=== PATIENT | female | born 2005 | race Caucasian/White ===

== ENCOUNTER 2024-06-06 01:30 | Emergency (ER) | payer MEDICAID, SELFPAY ==
[2024-06-06 01:32] VITALS: BP 134/68; PULSE 88; TEMP 36.8; O2SAT 97; BMI 48.3
--- NOTE | 2024-06-06 01:34 | XR_ITS ---
The [address] [address] Patient Name: MIR CARLOS MRN: [id number] date: 2005 Sex: F Assigned Patient Location: ER Current Patient Location: ER Accession/Order Number: [id number] Exam Date: 06/06/2024 02:00 Report Date: 06/06/2024 07:03 At the request of: EDILBERTO PATRICK Procedure: XR tibia fibula LT 2V PROCEDURE: XR tibia fibula LT 2V COMPARISON: None. HISTORY: fall FINDINGS: BONES:No fracture, acute abnormality, or significant arthropathy. SOFT TISSUES:Negative. No visible soft tissue swelling. EFFUSION:None visible. OTHER: Negative. XR/XR tibia fibula LT 2V IMPRESSION: No acute radiographic abnormality Electronically authenticated by: MALORIE ARSHAD Date: 06/06/2024 07:03
--- NOTE | 2024-06-06 01:34 | XR_ITS ---
The [address] [address] Patient Name: MIR CARLOS MRN: [id number] date: 2005 Sex: F Assigned Patient Location: ER Current Patient Location: Accession/Order Number: [id number] Exam Date: 06/06/2024 02:00 Report Date: 06/06/2024 06:44 At the request of: EDILBERTO PATRICK Procedure: XR ankle LT min 3V EXAM: XR ankle LT min 3V HISTORY: Fall. COMPARISON: Left tib-fib series dated 06/06/2024. TECHNIQUE: AP, mortise and lateral views of the left ankle performed. FINDINGS: The bony alignment and mineralization are within normal limits. There is no fracture. The plafond and talar dome are smoothly marginated. The ankle mortise is anatomic. The joint spaces are normal. There is soft tissue prominence of the left lower leg and ankle. Correlate with clinical findings to differentiate the patient's body habitus from soft tissue swelling. XR/XR ankle LT min 3V IMPRESSION: There is no acute fracture or malalignment. There is soft tissue prominence of the left lower leg and ankle. Correlate with clinical findings to differentiate the patient's body habitus from soft tissue swelling. Electronically authenticated by: SABINO VILLAFANA Date: 06/06/2024 06:44
--- NOTE | 2024-06-06 01:34 | ED.LOWEXI1 ---
HPI HPI - Extremity Injury (Lower) General Chief Complaint: Extremity Injury, Lower Stated Complaint: FALL Time Seen by Provider: 06/06/24 01:31 Source: patient Mode of arrival: ambulance Limitations: no limitations History of Present Illness HPI Narrative: 89-year-old female presents for left lower leg pain. Just before coming into the emergency department she twisted when her foot went into a hole and she fell. She did not hit her head and she points to the tibial region just distal to the midpoint between the knee and the ankle. She was brought here by ambulance and the pain is moderate to severe. Related Data Home Medications ?Medication ?Instructions ?Recorded ?Confirmed hydroxyzine pamoate 50 mg capsule 50 mg PO BID 06/06/24 06/06/24 omeprazole 10 mg capsule,delayed 10 mg PO DAILY 06/06/24 06/06/24 release Allergies Allergy/AdvReac Type Severity Reaction Status Date / Time risperidone [From Risperdal] Allergy Severe Hives Verified 06/06/24 01:31 Opioid HPI Opioid Management Most Recent Pain and Opioid Data: No Data to Display Review of Systems ROS Narrative A ten point review of systems is negative except as noted above. Exam Narrative Exam Narrative: Nurses note and vital signs reviewed and patient is not hypoxic. General: The patient appears in no acute distress. Skin: Warm, dry, no pallor noted. There is no rash noted. Head: Normocephalic, atraumatic Eye: Normal conjunctiva, no drainage Ears, Nose, Mouth, and Throat: oral mucosa is moist. Nares patent. Cardiovascular: Regular Rate and Rhythm Respiratory: Patient is in no distress, no accessory muscle use Back: non-tender GI: Soft and nontender Musculoskeletal: She has some tenderness in the mid to distal tibia fibular region. Skin intact. The foot is nontender. No obvious deformity Neurological: A&O, normal speech Psychiatric: Cooperative Constitutional Vital Signs, click to edit/add: Last Vital Signs Temp 98.3 F 06/06/24 01:32 Pulse 88 06/06/24 01:32 Resp 18 06/06/24 01:32 BP 134/68 06/06/24 01:32 Pulse Ox 97 06/06/24 01:32 O2 Del Method Room Air 06/06/24 01:32 Course Vital Signs Vital signs: Vital Signs Temperature 98.3 F 06/06/24 01:32 Pulse Rate 88 06/06/24 01:32 Respiratory Rate 18 06/06/24 01:32 Blood Pressure 134/68 06/06/24 01:32 Pulse Oximetry 97 06/06/24 01:32 Oxygen Delivery Method Room Air 06/06/24 01:32 Temperature 98.3 F 06/06/24 01:32 Pulse Rate 88 06/06/24 01:32 Respiratory Rate 18 06/06/24 01:32 Blood Pressure 134/68 06/06/24 01:32 Pulse Oximetry 97 06/06/24 01:32 Oxygen Delivery Method Room Air 06/06/24 01:32 MDM - Extremity Injury (Lower) MDM Narrative Medical decision making narrative: X-rays of left tibia-fibula and left ankle on my interpretation showed no acute findings. Randy wrap applied, application checked by me and found to be appropriate, she is neurovascular intact. Treatment diagnosis and follow-up were discussed with the patient. Differential Diagnosis Differential diagnosis: Likely ankle sprain and strain, ankle fracture and other (Muscle strain) Discharge Plan Discharge Stand Alone Forms: Portal Instructions Chief Complaint: Extremity Injury, Lower Clinical Impression: Left leg pain Patient Disposition: Home, Self-Care Time of Disposition Decision: 02:28 Condition: Good Mode of Transportation: Private Vehicle Prescriptions / Home Meds: No Action hydroxyzine pamoate 50 mg capsule 50 mg PO BID omeprazole 10 mg capsule,delayed release(DR/EC) 10 mg PO DAILY Print Language: Armenian Instructions: Muscle Strain (ED)
== END 2024-06-06 02:52 | disposition home or self-care (01) ==
PROVIDERS: Emergency Provider Emergency Medicine
DX: M79.662 Pain in left lower leg (principal); Z91.81 History of falling
CPT/HCPCS: 73590; 73610; 99284